=== PATIENT | male | born 1985 | race Caucasian/White ===

== ENCOUNTER → 2018-02-10 | Outpatient (CLI) | payer MEDICAID | LOC: COL.PUL 02-08 11:30 | DX: J44.9 Chronic obstructive pulmonary disease, unspecified (principal) ==

== ENCOUNTER → 2018-04-03 | Outpatient (CLI) | payer OTHER | LOC: COL.PUL 11:20 | DX: Z02.71 Encounter for disability determination (principal); I10 Essential (primary) hypertension; J44.9 Chronic obstructive pulmonary disease, unspecified ==

== ENCOUNTER → 2018-04-27 | Outpatient (CLI) | payer OTHER | LOC: COL.PUL 07:52 | DX: Z02.71 Encounter for disability determination (principal); J44.9 Chronic obstructive pulmonary disease, unspecified; F17.210 Nicotine dependence, cigarettes, uncomplicated ==

== ENCOUNTER 2018-08-30 20:03 | Emergency (ER) | payer BC ==
[~2018-08-30] VITALS: Ht 177.8 cm; Wt 140.9 kg
[2018-08-30 20:12] VITALS: BP 140/75; TEMP 98
[2018-08-30] MEDS ORDERED: KLONOPIN 0.5MG0.5 MG PO (20:25)
[2018-08-30] MEDS ORDERED: CATAPRES 0.1MG0.1 MG PO (20:26)
[2018-08-30] MEDS ORDERED: PROTONIX20 MG PO (20:26)
[2018-08-30] MEDS ORDERED: RT SPIRIVA18 MCG IH (20:27)
[2018-08-30] MEDS ORDERED: SEROQUEL400 MG PO (20:27)
[2018-08-30] MEDS ORDERED: ZOLOFT 100MG100 MG PO (20:27)
[2018-08-30] MEDS ORDERED: RT ADVAIR 228 DISKUS IH (20:28)
[2018-08-30] MEDS ORDERED: RT ALBUTER2.5 MG/0.5 IH (21:05)
[2018-08-30 21:40] VITALS: PULSE 99
== END 2018-08-30 21:39 | disposition home or self-care (01) ==
LOC: COL.ER 20:03
DX: J44.9 Chronic obstructive pulmonary disease, unspecified (principal); M25.561 Pain in right knee; Z79.51 Long term (current) use of inhaled steroids
CPT/HCPCS: L1846

== ENCOUNTER 2018-09-05 00:04 | Emergency (ER) | payer BC ==
[~2018-09-05] VITALS: Ht 177.8 cm; Wt 145.5 kg
[~2018-09-05 00:04] MED LIST: CATAPRES 0.1MG0.1 MG PO; KLONOPIN 0.5MG0.5 MG PO; PROTONIX20 MG PO; RT ADVAIR 228 DISKUS IH; RT ALBUTER2.5 MG/0.5 IH; RT SPIRIVA18 MCG IH; SEROQUEL400 MG PO; ZOLOFT 100MG100 MG PO
[2018-09-05 00:08] VITALS: TEMP 98.6
[2018-09-05] MEDS ORDERED: NORCO 325 MG-51 TAB PO (00:38)
[2018-09-05 00:55] LABS: ALBUMIN 4.3 gm/dL (3.5-5.0); BILIRUBIN,TOTAL 1.1 mg/dL (0.0-1.0); C-REACTIVE PROTEIN 6.1 mg/dL (0.0-0.9); CREATININE, serum 0.97 mg/dL (0.66-1.25); POTASSIUM 3.9 mmol/L (3.4-5.0); TOTAL PROTEIN 7.5 gm/dL (6.4-8.2)
[2018-09-05 01:02] LABS: BASO # 0.1 (0.0-0.2); BASO % 0.5 % (0.0-2.0); EOS # 0.7 (0.0-0.7); EOS % 5.6 % (0-4.0); GRAN # 6.1 (1.4-6.5); GRAN % 51.2 % (42.2-75.2); HEMATOCRIT 43.4 % (42.0-52.0); HEMOGLOBIN 14.5 g/dl (13.5-18.0); LYMPH # 3.8 (1.2-3.4); LYMPH % 31.9 % (20.0-51.0); MEAN CELL VOLUME 83 fl (80.0-100.0); MEAN CORPUSCULAR HEMOGLOBIN 28 pg (27.0-31.0); MEAN CORPUSCULAR HGB CONC 33 g/dl (33.0-37.0); MEAN PLATELET VOLUME 11.7 fl (7.4-10.4); MONO # 1.3 (0.1-0.6); MONO % 10.5 % (1.7-9.3); PLATELET COUNT 223 K/mm3 (130-400); RED BLOOD COUNT 5.22 M/mm3 (4.20-5.60); REDCELL DISTRIBUTION WIDTH-CV 14.6 % (11.5-14.5)
[2018-09-05 02:00] VITALS: BP 148/90; PULSE 108
== END 2018-09-05 02:00 | disposition left against medical advice (07) ==
LOC: COL.ER 00:04
PROVIDERS: Physician Assistant
DX: R06.02 Shortness of breath (principal); J44.9 Chronic obstructive pulmonary disease, unspecified; Z79.51 Long term (current) use of inhaled steroids